=== PATIENT | female | born 1990 ===

== ENCOUNTER 2020-10-02 10:00 | Emergency (ER) | payer SELFPAY ==
[2020-10-02 10:49] VITALS: BP 119/72
--- NOTE | 2020-10-02 10:56 | Event Note ---
ED Screening Note Date of service: 10/02/20 Time: 10:54 ED Screening Note: Patient Syriac-speaking. Chief Of Internal Medicine line used. Patient presents to the ER today complaining of rectal bleeding. She states that she has had this off and on for the past 3 years. She recently moved here from [place] about 4 months ago. She states that while living in [place] she went to the clinic to have the rectal bleeding checked. She could not describe a specific diagnosis she was given as to the cause of the rectal bleeding but states that she was told "it was swollen" and she was given medication. Rectal bleeding is mainly with bowel movements but she states that it feels heavy she also notices when she urinates. She denies any associated rectal or abdominal pain. She denies any significant past medical history This initial assessment/diagnostic orders/clinical plan/treatment(s) is/are subject to change based on patients health status, clinical progression and re- assessment by fellow clinical providers in the ED. Further treatment and workup at subsequent clinical providers discretion. Patient/guardian urged not to elope from the ED as their condition may be serious if not clinically assessed and managed. Initial orders include: Labs
[2020-10-02 12:05] LABS: Bilirubin,Urine NEG (Negative); Blood,Urine NEG (Negative); Color,Urine Yellow (Yellow); Mucus,Urine FEW /HPF; Protein,Urine <15 mg/dL mg/dL (Negative); Urobilinogen,Urine < 2.0 mg/dL (<2.0)
--- NOTE | 2020-10-02 12:07 | Emergency Department Report ---
ED GI Bleed HPI - General Chief complaint: GI Bleed Stated complaint: HEMORRHOIDS Time Seen by Provider: 10/02/20 10:53 Source: patient Mode of arrival: Ambulatory Limitations: No Limitations - History of Present Illness Initial comments: Patient presents to the ER today complaining of rectal bleeding. She states that she has had this off and on for the past 3 years. She recently moved here from [place] about 4 months ago. She states that while living in [place] she went to the clinic to have the rectal bleeding checked. She could not describe a specific diagnosis she was given as to the cause of the rectal bleeding but states that she was told "it was swollen" and she was given medication. Rectal bleeding is mainly with bowel movements but she states that it feels heavy she also notices when she urinates. She denies any associated rectal or abdominal pain. She denies any significant past medical history. - Related Data Previous Rx's Medication Instructions Recorded Last Taken Type Hydrocortisone [Anusol-Hc 2.5% TOP 1 supp RC Q8H PRN #1 cream..g. 10/02/20 Unknown Rx CREAM] Allergies Allergy/AdvReac Type Severity Reaction Status Date / Time No Known Allergies Allergy Unverified 10/02/20 10:47 ED Review of Systems ROS: Stated complaint: HEMORRHOIDS Other details as noted in HPI Comment: All other systems reviewed and negative ED Past Medical Hx - Past Medical History Previous Medical History?: Yes Hx Asthma: Yes - Surgical History Past Surgical History?: No - Social History Smoking Status: Never Smoker Substance Use Type: None - Medications Home Medications: Home Medications Medication Instructions Recorded Confirmed Last Taken Type Hydrocortisone [Anusol-Hc 2.5% TOP 1 supp RC Q8H PRN #1 cream..g. 10/02/20 Unknown Rx CREAM] ED Physical Exam - General Limitations: No Limitations General appearance: alert, in no apparent distress - Head Head exam: Present: atraumatic, normocephalic - Eye Eye exam: Present: normal appearance - ENT ENT exam: Present: mucous membranes moist, normal external ear exam - Neck Neck exam: Present: normal inspection, full ROM - Respiratory Respiratory exam: Absent: respiratory distress, accessory muscle use - Cardiovascular Cardiovascular Exam: Present: regular rate - GI/Abdominal GI/Abdominal exam: Present: soft, normal bowel sounds - Rectal Rectal exam: Present: normal rectal tone, heme (-) stool, hemorrhoids (Very small rectal hemorrhoid no strangulation no thrombosis no swelling no redness) - Extremities Exam Extremities exam: Present: normal inspection, full ROM - Back Exam Back exam: Present: full ROM - Neurological Exam Neurological exam: Present: alert, oriented X3, normal gait - Psychiatric Psychiatric exam: Present: normal affect, normal mood - Skin Skin exam: Present: warm, dry, intact, normal color. Absent: rash ED Course Vital Signs 10/02/20 10:38 Temperature 98.8 F Pulse Rate 88 Respiratory 12 Rate Blood Pressure 119/72 O2 Sat by Pulse 100 Oximetry ED Medical Decision Making - Lab Data Result diagrams: 10/02/20 12:31 10/02/20 12:31 - Medical Decision Making Patient presents to the ER today complaining of rectal bleeding. She states that she has had this off and on for the past 3 years. She recently moved here from [place] about 4 months ago. She states that while living in [place] she went to the clinic to have the rectal bleeding checked. She could not describe a specific diagnosis she was given as to the cause of the rectal bleeding but states that she was told "it was swollen" and she was given medication. Rectal bleeding is mainly with bowel movements but she states that it feels heavy she also notices when she urinates. She denies any associated rectal or abdominal pain. She denies any significant past medical history test is negative. There is no signs of anemia. Stool guaiac negative for any blood. Patient appears to have hemorrhoid that is nonthrombosed nonstrangulated not erythematous and no tenderness. Critical care attestation.: If time is entered above; I have spent that time in minutes in the direct care of this critically ill patient, excluding procedure time. ED Disposition Clinical Impression: Hemorrhoids Qualifiers: Hemorrhoid type: unspecified Qualified Code(s): K64.9 - Unspecified hemorrhoids Disposition: TO HOME OR SELFCARE Is pt being admited?: No Does the pt Need Aspirin: No Condition: Stable Instructions: Hemorrhoids, [id number] Additional Instructions: Blood work is stable shows no anemia, there is no kidney disease, negative test. Use medication as prescribed. Follow-up with a primary care provider. El anlisis de johana es estable no muestra anemia, no hay enfermedad renal, prueba de embarazo negativa. Use los medicamentos segn lo recetado. Seguimiento con un proveedor de atencin primaria. Prescriptions: Hydrocortisone [Anusol-Hc 2.5% TOP CREAM] 1 supp RC Q8H PRN #1 cream..g. PRN Reason: Hemorrhoids Referrals: PRIMARY CARE, [Primary Care Provider] - 3-5 Days [facility] [Provider Group] - 3-5 Days [facility] [place] [Outside] - 3-5 Days Forms: Accompanied Note
[2020-10-02 13:35] LABS: Alanine Aminotransferase 18 units/L (7-56); Albumin 4.5 g/dL (3.9-5); Blood Urea Nitrogen 9 mg/dL (7-17); Calcium 9.2 mg/dL (8.4-10.2); Hemolysis Index 4
[2020-10-02 13:37] LABS: Basophils # (Auto) 0.1 K/mm3 (0.0-0.1); Basophils % (Auto) 0.8 % (0.0-1.8); Eosinophils # (Auto) 0.1 K/mm3 (0.0-0.4); Eosinophils % (Auto) 1.1 % (0.0-4.3); Hematocrit 39.9 % (30.3-42.9); Hemoglobin 13.5 gm/dl (10.1-14.3); Lymphocytes # (Auto) 2.3 K/mm3 (1.2-5.4); Lymphocytes % (Auto) 28.8 % (13.4-35.0); Mean Corpuscular HGB Conc 34 % (30-34); Mean Corpuscular Volume 87 fl (79-97); Monocytes # (Auto) 0.6 K/mm3 (0.0-0.8); Monocytes % (Auto) 7.9 % (0.0-7.3); Platelet Count 229 K/mm3 (140-440); Red Blood Count 4.57 M/mm3 (3.65-5.03); Red Cell Distribution Width 12.9 % (13.2-15.2)
[2020-10-02 13:50] LABS: BUN/Creatinine Ratio 18
== END 2020-10-02 14:00 | disposition home or self-care (01) ==
LOC: ED 10:00
DX: K64.9 Unspecified hemorrhoids (principal); J45.909 Unspecified asthma, uncomplicated; Z79.899 Other long term (current) drug therapy
CPT/HCPCS: 36415; 80053; 81001; 82271; 84703; 85025; 99283